=== PATIENT | male | born 1975 | race Caucasian/White ===

== ENCOUNTER 2017-07-26 15:33 | Outpatient (CLI) ==
--- NOTE | 2017-07-26 16:05 | DI ---
Exam: Four x-rays of the abdomen. Comparison: CT abdomen performed 02/25/2010. Reason for exam: Left lower quadrant pain. FINDINGS: There is a nonspecific, nonobstructive bowel gas pattern with a moderate amount of stool s een throughout the colon. No significant degenerative disease is seen within the lumbosacral spine o r pelvis. Impression: Nonspecific, nonobstructive bowel gas pattern with a moderate to large stool burden.
== END 2017-07-26 15:34 | disposition home or self-care (01) ==
LOC: RAD 15:33
PROVIDERS: ATTEND Nurse Practitioner Family
DX: R11.2 Nausea with vomiting, unspecified (principal); R10.32 Left lower quadrant pain; K59.00 Constipation, unspecified
CPT/HCPCS: 36415; 80053; 82150; 83690; 85025; 86677

== ENCOUNTER 2017-08-08 09:10 | Outpatient (CLI) ==
--- NOTE | 2017-08-08 10:20 | CT ---
EXAM: CT ABDOMEN AND PELVIS HISTORY: Left lower quadrant abdominal pain. TECHNIQUE: CT abdomen and pelvis with and without intravenous contrast. Images were reconstructed u sing 5 mm section thickness. Reformations were prepared. 75 mL Omnipaque. COMPARISON: 05/17/2011 FINDINGS: No focal hepatic or splenic lesions. Gallbladder, pancreas and adrenal glands appear normal. No nep hrolithiasis or hydronephrosis. Normal enhancement of the renal parenchyma. Normal abdominal aorta. Normal stomach. Normal appendix. General bowel gas pattern and appearance was within normal limits. No colonic diverticulosis. Urinary bladder appears normal. No prostate enlargement. There is no as cites or inflammatory infiltration of the abdominal fat. Ventral abdominal wall is intact without herniation. Bones appear appropriate for age. Lung bases a re clear. There is no pneumoperitoneum. IMPRESSION: Findings within normal limits. No etiology for patient's symptoms was found.
== END 2017-08-08 09:11 | disposition home or self-care (01) ==
LOC: RAD 09:10
PROVIDERS: ATTEND Nurse Practitioner Family
DX: R10.32 Left lower quadrant pain (principal); R11.2 Nausea with vomiting, unspecified